=== PATIENT | male | born 1965 | race Caucasian/White ===

== ENCOUNTER → 2016-11-29 | Outpatient (CLI) | payer BC | LOC: FIMAGING 11:15 | PROVIDERS: ATTEND Nurse Practitioner | DX: R06.02 Shortness of breath (principal) ==

== ENCOUNTER → 2017-08-22 | Outpatient (CLI) | payer BC | LOC: FIMAGING 09:06 | PROVIDERS: ATTEND Otolaryngology | DX: R22.1 Localized swelling, mass and lump, neck (principal) ==

== ENCOUNTER 2018-02-20 11:53 | Emergency (ER) | payer BC ==
[2018-02-20 12:01] VITALS: BP 115/84
--- NOTE | 2018-02-20 13:05 | EDPHY ---
H & P Stated Complaint: lump l upper arm/erythema Time Seen by Provider: 02/20/18 13:05 - Personal History Current Tetanus Diphtheria and Acellular Pertussis (TDAP): Yes - Medical/Surgical History Hx Asthma: Yes Hx Chronic Respiratory Disease: No Hx Diabetes: No Hx Cardiac Disease: No Hx Renal Disease: No Hx Cirrhosis: No Hx Alcoholism: No Hx HIV/AIDS: Yes Hx Splenectomy or Spleen Trauma: No Other PMH: adrenal crisis - Social History Smoking Status: Never smoked Constitutional: Initial Vital Signs Temperature (C) 36.7 C 02/20/18 11:58 Heart Rate 88 02/20/18 11:58 Respiratory Rate 16 02/20/18 11:58 Blood Pressure 115/84 H 02/20/18 11:58 O2 Sat (%) 99 02/20/18 11:58 O2 Delivery Mode Room Air Allergies/Adverse Reactions: No Known Allergies Allergy (Unverified 02/20/18 11:57) Home Medications: Medication Instructions Recorded Advair 100/50 (*) 02/20/18 Cephalexin [Keflex (RX)] 500 mg PO TID #30 cap 02/20/18 Descovy 200-25 mg Tablet 02/20/18 Hydrocortisone 02/20/18 Isentress 02/20/18 Lipitor 02/20/18 Qnasl 02/20/18 Singulair 02/20/18 ZYRTEC 02/20/18 Zoloft 100mg (*) 02/20/18 Medical Decision Making - Diagnostics Imaging Results: Imaging Impressions Extremity Venous Study 02/20/18 12:31 Impression: Lower arm basilic vein thrombosis. Results called and discussed with Baldo Delgado MD, at 02/20/2018 13:16. Imaging: Discussed imaging studies w/ mask former Radiologist, I viewed and interpreted images myself ED Course/Re-evaluation: CHIEF COMPLAINT: Left arm pain HISTORY OF PRESENT ILLNESS: The patient is a 52 y/o male with a history of HIV (followed by the [facility]) complaining of left arm pain. Several days ago he was in [place] on vacation an had an IV placed in his right arm. Yesterday he noticed redness, pain, and swelling in his left arm. Denies chest pain, shortness of breath, abdominal pain, urinary or bowel complaints, fever, numbness, paresthesias. REVIEW OF SYSTEMS: A 10 point review of systems was performed and is negative with the exception of the elements mentioned in the history of present illness. PHYSICAL EXAM: HR, BP, O2 Sat, RR. Temp noted General Appearance: Alert, well hydrated, appropriate, and non-toxic appearing. Head: Atraumatic without scalp tenderness or obvious injury Eyes: Pupils equal, round, reactive to light and accommodation, EOMI, no trauma , no injection. Ears: Clear bilaterally, no perforation, normal landmarks Nose: Atraumatic, no rhinorrhea, clear. Throat: There is no erythema or exudates, no lesions, normal tonsils, mucus membranes moist. Neck: Supple, 2+ carotid upstroke, nontender, no lymphadenopathy. Respiratory: No retractions, no distress, no wheezes, and no accessory muscle use. Lungs are clear to auscultation bilaterally. Cardiovascular: Regular rate and rhythm, no murmurs, rubs, or gallops. Bilateral carotid, radial, dorsalis pedis, and posterior tibial pulses intact. Good capillary refill all extremities. Gastrointestinal: Abdomen is soft, nontender, non-distended, no masses, no rebound, no guarding, no peritoneal signs. Musculoskeletal: Erythema, swelling, and tenderness of left upper extremity. Normal active ROM of all extremities, atraumatic. Neurological: Alert, appropriate, and interactive. Nonfocal neuro. Skin: No rashes, good turgor, no nodules on palpation. Past medical history: HIV, adrenal crisis Past surgical history: Denies Family history: Denies Social history: Lives in [place], , employed DIAGNOSTICS/PROCEDURES/CRITICAL CARE TIME: Left upper extremity US: Lower arm basilic vein thrombosis DIFFERENTIAL DIAGNOSIS: The differential diagnosis for the patient's arm swelling included but was not limited to superficial thrombosis hypoalbuminemia, congestive heart failure, cor pulmonale, venous stasis, trauma, and DVT. MEDICAL DECISION MAKING: The patient is a 52 y/o male with a history of HIV (followed by the [facility]) presenting with left arm pain after an unsuccessful IV stick several days ago. On exam he has erythema, swelling, and tenderness over the ventral, medial aspect of his left upper extremity. Left upper extremity ultrasound ordered. 1316: Spoke with radiologist, patient has a lower arm basilic vein thrombosis. 1329: Reassessed patient and discussed imaging findings. I have advised him to apply warm compresses and take Keflex. His first dose of Keflex was given prior to discharge. Return precautions provided; patient is comfortable with this plan. 1331: Consulted with Dr. Randall, CRISTINA, regarding this patient. Patient will need to follow up with Dr. Gunderson in her office. - Data Points Medications Given: Discontinued Medications Cephalexin HCl (Keflex) 500 mg PO EDNOW ONE PRN Reason: Protocol Stop: 02/20/18 13:35 Last Admin: 02/20/18 13:49 Dose: 500 mg Departure - Departure Disposition: Home, Routine, Self-Care Clinical Impression: Superficial venous thrombosis of left upper extremity Condition: Good Instructions: Superficial Thrombophlebitis (ED), Warm Compress or Soak (ED) Additional Instructions: 1. Apply warm warm compresses to the soar and red areas. 2. Take Keflex as prescribed. 3. Follow up with the [facility]. 4. Return to the Emergency Department for fever, chest pain, shortness of breath , increasing pain or other worsening of condition. Referrals: Shelly Randall NP [Primary Care Provider] - As per Instructions Prescriptions: Cephalexin [Keflex (RX)] 500 mg PO TID #30 cap Report Scribed for: Josue Baumann Report Scribed by: Deisi Wilson Date of Report: 02/20/18 Time of Report: 13:06
[2018-02-20] MEDS ORDERED: CEPHALEXIN 500 MG CAP PO ONE (13:34)
== END 2018-02-20 13:52 | disposition home or self-care (01) ==
LOC: MERGE 11:53
DX: I82.612 Acute embolism and thrombosis of superficial veins of left upper extremity (principal); J45.909 Unspecified asthma, uncomplicated